=== PATIENT | female | born 1935 | race Two or more races ===

== ENCOUNTER 2018-10-10 13:15 | Outpatient (CLI) | payer MEDICARE, MEDICAID ==
[~2018-10-10] VITALS: Ht 152.4 cm; Wt 64.9 kg
[2018-10-10 16:18] VITALS: BP 151/68
[2018-10-10] MEDS ORDERED: NO MEDICATION (16:18)
--- NOTE | 2018-10-10 17:00 | Consultation ---
DATE OF CONSULTATION: 10/10/2018 CHIEF COMPLAINT: Retained biliary stent. HISTORY OF PRESENT ILLNESS: Very pleasant patient was referred to us by for evaluation of the stent removal. Apparently the patient had gallbladder surgery, CBD stone, had an ERCP, stent placement but the stent has not been removed. PAST MEDICAL HISTORY: Cholecystectomy and biliary stent. ALLERGIES: No known drug allergies. MEDICATIONS: Please see medication reconciliation list. SOCIAL HISTORY: The patient denies any tobacco, alcohol, or drug abuse. FAMILY HISTORY: Noncontributory. REVIEW OF SYSTEMS: A 10-point review of systems was performed and pertinent positives in HPI. The patient has minimum right lower quadrant and right upper quadrant abdominal pain. PHYSICAL EXAMINATION: VITAL SIGNS: Temperature 98.7, blood pressure 157/68, pulse 70, respirations 20. HEENT: Normocephalic and atraumatic. Sclerae anicteric. NECK: Supple. No evidence of obvious lymphadenopathy. CARDIOVASCULAR: Regular rate and rhythm. Plus S1 and S2. No obvious murmur. LUNGS: Clear to auscultation bilaterally. ABDOMEN: Positive bowel sounds. Soft and nontender. No rebound. No guarding. No peritoneal sign. EXTREMITIES: No cyanosis. No clubbing. No edema. ASSESSMENT AND PLAN: This is an 82-year-old female with retained biliary stent, plan to do an ERCP on Monday and remove the stent. The risks and benefits of the procedure was explained to the daughter and the patient and they both agreed. In terms of for screening colonoscopy, we will discuss with the patient in next visit. Shane Alvarenga M.D. DR: Afia JOB#: [id number] CC:
== END 2018-10-10 15:15 | disposition home or self-care (01) ==
LOC: EDBD → PAN 13:15
DX: Z01.818 Encounter for other preprocedural examination (principal); Z90.49 Acquired absence of other specified parts of digestive tract
CPT/HCPCS: 99202

== ENCOUNTER 2018-10-31 12:54 | Outpatient (CLI) | payer MEDICARE, OTHER ==
[~2018-10-31 12:54] MED LIST: NO MEDICATION
--- NOTE | 2018-10-31 15:10 | General Progress Note ---
Assessment/Plan Assessment/Plan: s/p ERCP and stent removal asymtomatic RTC prn Subjective ROS Limited/Unobtainable: Yes Allergies: Coded Allergies: No Known Allergies (Unverified , 10/10/18) Objective General Appearance: alert EENT: normal ENT inspection Neck: supple Cardiovascular: normal rate Respiratory/Chest: lungs clear Abdomen: normal bowel sounds, non tender, soft Extremities: normal range of motion, non-tender Shane Alvarenga MD Oct 31, 2018 15:10
== END 2018-10-31 14:54 | disposition home or self-care (01) ==
LOC: PAN 12:54
DX: R10.9 Unspecified abdominal pain (principal)
CPT/HCPCS: 99202